=== PATIENT | male | born 1970 | race Caucasian/White ===

== ENCOUNTER 2020-11-16 15:05 | Outpatient (RCR) | payer OTHER, SELFPAY ==
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
== END 2020-12-03 09:03 | disposition home or self-care (01) ==
LOC: ANHPT 15:05
PROVIDERS: PCP Nurse Practitioner Family; Visit Provider Otolaryngology
DX: H81.10 Benign paroxysmal vertigo, unspecified ear (principal)
CPT/HCPCS: 97162

== ENCOUNTER 2021-08-31 08:11 | Outpatient (CLI) | payer OTHER, SELFPAY | END 2021-08-31 08:12 | disposition home or self-care (01) | LOC: ANHAUDIO 08:13 | PROVIDERS: PCP Nurse Practitioner Family; Visit Provider Otolaryngology | DX: H90.3 Sensorineural hearing loss, bilateral (principal) | CPT/HCPCS: 92557; 92567 ==

== ENCOUNTER 2021-11-02 06:58 | Outpatient (RCR) | payer OTHER, SELFPAY | END 2021-11-02 23:59 | disposition home or self-care (01) | LOC: ANHAUDIO 06:58 | PROVIDERS: PCP Nurse Practitioner Family; Visit Provider Nurse Practitioner Family | DX: Z46.1 Encounter for fitting and adjustment of hearing aid (principal) | CPT/HCPCS: V5160; V5261 ==

== ENCOUNTER 2022-01-19 09:49 | Outpatient (CLI) | payer OTHER, SELFPAY ==
--- NOTE | ~2022-01-19 | XR_ITS ---
EXAMINATION: XR barium swallow modified DATE: 01/19/2022 10:24 INDICATION: Dysphagia. TECHNIQUE: The patient was given barium-containing material of multiple consistencies to swallow by t shun speech pathologist while I performed fluoroscopy. Fluoroscopy exposure time was 1.3 minutes. The n umber of fluoroscopy images saved to the PACS was 1. Dose-area product was 1.833 Gy-cm^2. FINDINGS: There was reduced laryngeal elevation, reduced laryngeal adduction, reduced tongue base retraction, r educed pharyngeal squeeze, and minimal piriform sinus residue. IMPRESSION: 1. No aspiration. 2. Please refer to the speech therapy report for recommendations. Reviewed, dictated and finalized at location A.
--- NOTE | 2022-01-19 11:19 | STOPEVAL1 ---
Evaluation Information Assessment Status Evaluation Reported Pain Level Pain Score 0: Self Report Assessment ST Clinical Summary Patient seen for outpatient modified barium swallow (MBS). No aspiration or penetration observed. Patient does exhibit delayed oral phase and delayed pharyngeal phase swallowing all consistencies (thin, nectar thick, pureed, mixed, and solid). Patient also exhibits decreased laryngeal elevation, tongue base movement, and laryngeal adduction. Patient was provided with education regarding compensatory strategies to increase efficient swallowing. It is also recommended that this patient follow up with outpatient treatment to increase swallowing functional abilities. Thank you for the referral of this patient. These treatments will address the objective and functional deficits as defined above. The patient will be advanced safely and appropriately in order for the patient to progress towards his/her prior level of function. Additional exercises will be introduced and as well as a comprehensive home exercise program upon discharge, if needed, ?to ensure carryover of functional gains achieved in the clinic. This treatment plan has been reviewed and agreement upon by the patient.
== END 2022-01-19 09:50 | disposition home or self-care (01) ==
PROVIDERS: PCP Nurse Practitioner Family; Visit Provider Otolaryngology
DX: R13.10 Dysphagia, unspecified (principal)
CPT/HCPCS: 92611

== ENCOUNTER 2023-02-19 11:30 | Outpatient (CLI) | payer OTHER, SELFPAY ==
--- NOTE | ~2023-02-19 | XR_ITS ---
Supine and upright views of the abdomen Clinical history: Abdominal pain Findings: Bowel gas pattern is nonspecific. No evidence for obstruction or free air. No abnormal mass lesion or calcification is seen. Cholecystectomy clips noted. Osseous structures are intact. Impression: No significant abnormality is seen. Reviewed, dictated and finalized at [facility]. Impression: No significant abnormality is seen.
[2023-02-19 12:05] LABS: Hematocrit 46.8 % (42.0-52.0); Hemoglobin 15.3 g/dL (14.0-18.0); Mean Corpuscular HGB Conc 32.7 g/dl (32-36); Mean Corpuscular Volume 94.9 fl (80-100); Mean Platelet Volume 9.9 fl (7.4-10.4); Platelet Count Result 303 k/mm3 (150-375); Red Blood Count 4.93 M/mm3 (4.6-6.20); Red Cell Distribution Width 13.4 % (11.5-14.5); White Blood Count 9.9 K/mm3 (4.5-10.0)
[2023-02-19 12:18] LABS: Alanine Aminotransferase 32 U/L (6-50); Albumin Level 4.5 g/dL (3.5-5.1); Alkaline Phosphatase 108 U/L (38-126); Anion Gap 11 mmol/L (8-16); Aspartate Amino Transferase 27 U/L (17-59); Bilirubin,Total 0.5 mg/dL (0.2-1.3); Blood Urea Nitrogen 14 mg/dL (9-20); Calcium 9.1 mg/dL (8.4-10.2); Carbon Dioxide 26 mmol/L (22-30); Chloride 102 mmol/L (98-107); Estimated Glomerular Filt Rate > 60; Glucose 114 mg/dL (65-110); Sodium 139 mmol/L (137-145)
== END 2023-02-19 11:31 | disposition home or self-care (01) ==
PROVIDERS: PCP Nurse Practitioner Family; Visit Provider Nurse Practitioner
DX: R10.813 Right lower quadrant abdominal tenderness (principal); R10.814 Left lower quadrant abdominal tenderness; K58.1 Irritable bowel syndrome with constipation; R11.0 Nausea; R68.81 Early satiety; R63.4 Abnormal weight loss
CPT/HCPCS: 36415; 74018; 80053; 84443; 85027

== ENCOUNTER 2023-03-05 07:53 | Outpatient (CLI) | payer OTHER, SELFPAY ==
--- NOTE | ~2023-03-05 | CT_ITS ---
CT of the Abdomen and Pelvis: Indication: Weight loss Technique: 2.5 mm axial scans were obtained through the abdomen and pelvis following intravenous adm inistration of 100 cc of Omnipaque 350. Dose reduction technique was used on this scan by utilizing a utomated exposure control and iterative reconstruction technique. The dose-length product (DLP) was 1 564.88 mGy-cm. Findings: Scans through the lung bases are unremarkable. Probable fatty infiltration of liver noted. Cholecystectomy clips are present. The spleen, pancreas, adrenals and kidneys are within normal limits.. There are atherosclerotic calcifications of the aorta . No lymphadenopathy. No bowel obstruction or bowel wall thickening. There is no evidence to suggest acute appendicitis. Images through the pelvis were performed. Urinary bladder unremarkable. No pelvic mass seen. No ascit es. Impression: Probable diffuse fatty infiltration of liver. No other significant findings. [place]ed, [place] [facility] [place]ression: Probable diffuse fatty infiltration of liver. No other significant findings.
[2023-03-05 08:18] LABS: Estimated Glomerular Filt Rate > 60
== END 2023-03-05 07:54 | disposition home or self-care (01) ==
PROVIDERS: PCP Nurse Practitioner Family; Visit Provider Nurse Practitioner
DX: R63.4 Abnormal weight loss (principal); R10.813 Right lower quadrant abdominal tenderness; R10.814 Left lower quadrant abdominal tenderness
CPT/HCPCS: 74177; Q9967

== ENCOUNTER 2023-03-28 02:16 | Day surgery (SDC) | payer OTHER, SELFPAY ==
[2023-03-20 14:02] VITALS: BMI 41.6
--- NOTE | 2023-03-26 09:06 | SUR.PREOP ---
Patient called regarding upcoming procedure. Reviewed preop instructions, appointment times, and procedure prep.
--- NOTE | 2023-03-27 10:40 | PM.HPGS ---
History of Present Illness History of Present Illness Consent: Risks, benefits, and alternatives have been discussed and questions answered. Patient agrees to proceed with procedure. Chief complaint: Early satiety,nausea,GERD,Abnormal Wt loss, IBS-C Narrative: Watson Courtney is a 52 year old male who is here with multiple issues. He complains of abdominal pain. This is primarily in the lower abdomen, bilateral, a pressure sensation and worse if anything lies on his belly. He has alternating loose and hard stools. He takes an oral stool softener and has used that for many years. He is also complaining of early satiety. Just in the last 6 months he has lost about 50 lb. He takes omeprazole 3 times a day for his heartburn. Denies vomiting. Last colonoscopy was 9 years ago and was noted that he had had a poor prep. He has also been told that he had Graves's esophagus. A CT scan done a few weeks ago was entirely normal except for showing ?possible fatty liver? Review of Systems Review of Systems: All systems reviewed & are unremarkable except as noted in HPI and below PMFSH Past Medical History Medical History A-fib Abnormal weight loss Barretts esophagus Chronic GERD Early satiety Irritable bowel syndrome with constipation LLQ abdominal tenderness Nausea Obesity Pacemaker RLQ abdominal tenderness Sleep apnea Social History Social History Smoking packs per day: 1.5 Smoking cigarettes per day: 30.0 Years smoked: 30 Smoking pack-years: 45.00 Smoking status: Former smoker Tobacco type: cigarettes Alcohol intake: never Substance use: former Substance use type: prescription drug Living arrangements: with family Spiritual care concerns: No Meds Home Medications and Allergies Home Medications Medication Instructions Recorded Confirmed Type amitriptyline 100 mg tablet 100 mg PO QHS 10/27/20 03/20/23 History apixaban 5 mg tablet (Eliquis) 5 mg PO BID 10/27/20 03/20/23 History atenolol 25 mg tablet 25 mg PO BID 10/27/20 03/20/23 History budesonide-formoterol HFA 80 2 puff inhalation Q12H 10/27/20 03/20/23 History mcg-4.5 mcg/actuation aerosol inhaler (Symbicort) cyclobenzaprine 10 mg tablet 10 mg PO TID 10/27/20 03/20/23 History diltiazem HCl 360 mg capsule,24 360 mg PO DAILY 10/27/20 03/20/23 History hr,extended release divalproex 500 mg tablet,extended 500 mg PO BID 10/27/20 03/20/23 History release 24 hr erenumab-aooe 70 mg/mL 70 mg subcut MONTHLY 10/27/20 03/20/23 History subcutaneous auto-injector (Aimovig Autoinjector) ezetimibe 10 mg tablet 10 mg PO DAILY 10/27/20 03/20/23 History ferrous sulfate 325 mg (65 mg 325 mg PO DAILY 10/27/20 03/20/23 History iron) tablet flecainide 100 mg tablet 100 mg PO Q8H 10/27/20 03/20/23 History hydrocortisone 0.5 % topical cream 1 applic topical BID PRN Rash 10/27/20 03/20/23 History hydrocortisone 10 mg tablet 10 mg PO BID 10/27/20 03/20/23 History lovastatin 20 mg tablet 20 mg PO DAILY 10/27/20 03/20/23 History magnesium oxide 400 mg (241.3 mg 400 mg PO DAILY 10/27/20 03/20/23 History magnesium) tablet montelukast 10 mg tablet 10 mg PO DAILY 10/27/20 03/20/23 History omeprazole 20 mg capsule,delayed 20 mg PO TID 10/27/20 03/20/23 History release ropinirole 0.5 mg tablet 0.5 mg PO TID 10/27/20 03/20/23 History sumatriptan succinate 50 mg tablet 50 mg PO ONCE PRN Migraine Headache 10/27/20 03/20/23 History tamsulosin 0.4 mg capsule 0.4 mg PO BID 10/27/20 03/20/23 History benzonatate 100 mg capsule See Rx Instructions .Route 08/24/21 03/20/23 Rx .COMPLEX #60 caps fluticasone propionate 50 See Rx Instructions .Route 10/19/21 03/20/23 Rx mcg/actuation nasal .COMPLEX #16 grams spray,suspension metformin 500 mg tablet 500 mg PO DAILY 02/19/23 03/20/23 History linaclotide 145 mcg capsule 145 mcg PO DAILY 1 month #30 c
[2023-03-28 06:55] VITALS: BP 125/81; PULSE 76; RESP 20; TEMP 36.5; O2SAT 98; BMI 42.7
[2023-03-28] MEDS: LACTATED RINGERS 1,000 ML 150 ML IV CONT (07:13)
[2023-03-28 07:18] LABS: Glucose Point of Care 103 mg/dl (65-105)
--- NOTE | 2023-03-28 07:55 | WPDANESEPPF ---
Anes - Initial Pre Proc Eval Procedure: Operation Date: 03/28/23 08:00 Proposed Procedures p Esophagogastroduodenoscopy & Colonoscopy - Cullen Hill MD Date/Time: 03/28/23 07:55 Surgeon: Cullen Hill MD Pre Op Diagnosis: Early satiety,nausea,GERD,Abnormal Wt loss, IBS-C Patient Data Age: 52 Gender: M Height: 1.65 m Weight: 116.5 kg Last Vital Signs Temp 97.7 F 03/28/23 06:55 Pulse 76 03/28/23 06:55 Resp 20 03/28/23 06:55 BP 125/81 03/28/23 06:55 Pulse Ox 98 03/28/23 06:55 O2 Del Method Room Air 03/28/23 06:55 Allergies Allergy/AdvReac Type Severity Reaction Status Date / Time nut - unspecified Allergy Severe Cough Verified 03/28/23 06:54 Penicillins Allergy Severe Anaphylaxis Verified 03/28/23 06:54 lactose Allergy Intermediate Diarrhea Verified 03/28/23 06:54 tomato Allergy Intermediate Nausea and Verified 03/28/23 06:54 Vomiting Home Medications Medication Instructions Recorded Confirmed Type amitriptyline 100 mg tablet 100 mg PO QHS 10/27/20 03/20/23 History apixaban 5 mg tablet (Eliquis) 5 mg PO BID 10/27/20 03/20/23 History atenolol 25 mg tablet 25 mg PO BID 10/27/20 03/20/23 History budesonide-formoterol HFA 80 2 puff inhalation Q12H 10/27/20 03/20/23 History mcg-4.5 mcg/actuation aerosol inhaler (Symbicort) cyclobenzaprine 10 mg tablet 10 mg PO TID 10/27/20 03/20/23 History diltiazem HCl 360 mg capsule,24 360 mg PO DAILY 10/27/20 03/20/23 History hr,extended release divalproex 500 mg tablet,extended 500 mg PO BID 10/27/20 03/20/23 History release 24 hr erenumab-aooe 70 mg/mL 70 mg subcut MONTHLY 10/27/20 03/20/23 History subcutaneous auto-injector (Aimovig Autoinjector) ezetimibe 10 mg tablet 10 mg PO DAILY 10/27/20 03/20/23 History ferrous sulfate 325 mg (65 mg 325 mg PO DAILY 10/27/20 03/20/23 History iron) tablet flecainide 100 mg tablet 100 mg PO Q8H 10/27/20 03/20/23 History hydrocortisone 0.5 % topical cream 1 applic topical BID PRN Rash 10/27/20 03/20/23 History hydrocortisone 10 mg tablet 10 mg PO BID 10/27/20 03/20/23 History lovastatin 20 mg tablet 20 mg PO DAILY 10/27/20 03/20/23 History magnesium oxide 400 mg (241.3 mg 400 mg PO DAILY 10/27/20 03/20/23 History magnesium) tablet montelukast 10 mg tablet 10 mg PO DAILY 10/27/20 03/20/23 History omeprazole 20 mg capsule,delayed 20 mg PO TID 10/27/20 03/20/23 History release ropinirole 0.5 mg tablet 0.5 mg PO TID 10/27/20 03/20/23 History sumatriptan succinate 50 mg tablet 50 mg PO ONCE PRN Migraine Headache 10/27/20 03/20/23 History tamsulosin 0.4 mg capsule 0.4 mg PO BID 10/27/20 03/20/23 History benzonatate 100 mg capsule See Rx Instructions .Route 08/24/21 03/20/23 Rx .COMPLEX #60 caps fluticasone propionate 50 See Rx Instructions .Route 10/19/21 03/20/23 Rx mcg/actuation nasal .COMPLEX #16 grams spray,suspension metformin 500 mg tablet 500 mg PO DAILY 02/19/23 03/20/23 History linaclotide 145 mcg capsule 145 mcg PO DAILY 1 month #30 caps 02/26/23 03/20/23 Rx (Linzess) ascorbic acid (vitamin C) 500 mg 500 mg PO WEEKLY 03/20/23 03/20/23 History tablet carisoprodol 250 mg tablet 250 mg PO TID PRN Pain 03/20/23 03/20/23 History Laboratory Tests 03/28/23 07:11 POC Capillary Glucose 103 mg/dl (65-105) Patient hx anesthesia problems: none Family hx anesthesia problems: none Results Review: All pre-operative results and documents have been reviewed as part of the pre-operative evaluation. [facility] Past Medical History Medical History A-fib Abnormal weight loss Barretts esophagus Chronic GERD Early satiety Irritable bowel syndrome with constipation LLQ abdominal tenderness Nausea Obesity Pacemaker RLQ abdominal tenderness Sleep apnea Social History Social History Smoking packs per day: 1.5 Smoking cigarettes per day: 3
--- NOTE | 2023-03-28 08:08 | SUR.OPER ---
EGD start 0753 end 801, Colonoscopy start 807
[2023-03-28 08:29] VITALS: BP 97/57; PULSE 70; RESP 20; O2SAT 94
[2023-03-28 08:39] VITALS: BP 101/73; PULSE 70; RESP 14; O2SAT 97
[2023-03-28 08:49] VITALS: BP 103/70; PULSE 70; RESP 16; O2SAT 96
== END 2023-03-28 09:08 | disposition home or self-care (01) ==
PROVIDERS: PCP Nurse Practitioner Family; Visit Provider Internal Medicine Gastroenterology
PROC: 0DJ08ZZ Inspection of Upper Intestinal Tract, Via Natural or Artificial Opening Endoscopic (ICD-10-PCS; CPT 43235; principal; 2023-03-28 08:00)
DX: K22.711 Barrett's esophagus with high grade dysplasia (principal); K22.710 Barrett's esophagus with low grade dysplasia; K44.9 Diaphragmatic hernia without obstruction or gangrene; K58.1 Irritable bowel syndrome with constipation; R19.7 Diarrhea, unspecified; K64.8 Other hemorrhoids; R63.4 Abnormal weight loss; K62.1 Rectal polyp; I48.91 Unspecified atrial fibrillation; K21.9 Gastro-esophageal reflux disease without esophagitis; G47.30 Sleep apnea, unspecified; Z95.0 Presence of cardiac pacemaker; E66.01 Morbid (severe) obesity due to excess calories; Z68.41 Body mass index [BMI] 40.0-44.9, adult; Z87.891 Personal history of nicotine dependence; Z79.01 Long term (current) use of anticoagulants; Z79.51 Long term (current) use of inhaled steroids; Z79.84 Long term (current) use of oral hypoglycemic drugs
CPT/HCPCS: 45385; 43239; 82948; 88305; J2704; J7120